=== PATIENT | male | born 1930 | race Caucasian/White ===

== ENCOUNTER 2018-01-25 20:23 | Emergency (ER) | payer MEDICARE, OTHER ==
[~2018-01-25] VITALS: Ht 180.3 cm; Wt 88.5 kg
[~2018-01-25 20:23] MED LIST: ACTIGALL300 MG PO; ADULT LOW DOSE81 MG PO; AMLODIPINE BESY10 MG PO; LEVOTHYROXINE88 MCG PO; METOPROLOL SUC100 MG PO; POTASSIUM CHLO10 ME1 PO; RESTASIS1 DROP OD; TAMSULOSIN HCL0.4 MG PO
[2018-01-25] MEDS ORDERED: MECLIZINE HCL25 MG PO (20:33)
[2018-01-25] MEDS ORDERED: ZOFRAN ODT4 MG PO (21:38)
== END 2018-01-25 22:02 | disposition home or self-care (01) ==
LOC: ED 20:23
DX: R11.2 Nausea with vomiting, unspecified (principal); E87.6 Hypokalemia; I10 Essential (primary) hypertension; E03.9 Hypothyroidism, unspecified; Z79.899 Other long term (current) drug therapy; Z79.82 Long term (current) use of aspirin
CPT/HCPCS: 80053; 81001; 85025; 96361; 96374; 96375; 99283; J2405; J7030

== ENCOUNTER → 2020-06-06 | Emergency (ER) | payer MEDICARE, OTHER ==
[~2020-06-06] VITALS: Ht 180.3 cm; Wt 88.5 kg
[~2020-06-06] MED LIST changes: +MECLIZINE HCL25 MG PO; +ZOFRAN ODT4 MG PO
--- OUTSIDE RECORDS SUMMARY | ~2020-06-06 | XMS | Encounter Summary ---
Demographics + + + | Address | [address] | | | [place] [address] | + + + | Home Phone | | + + + | Preferred Language | Unknown | + + + | Marital Status | Single | + + + | Confucianism Affiliation | Unknown | + + + | Race | Unknown | + + + | Ethnic Group | Other Race | + + + Author + + + | Author | [facility] | + + + | Organization | [facility] | + + + | Address | Unknown | + + + | Phone | Unavailable | + + + Care Team Providers + +------+ + | Care Help Desk Assistant Name | Role | Phone | + +------+ + PCP | Unavailable | + +------+ + Encounter Details +--------+ + + + + | Date | Type | Department | Care Team | Description | +--------+ + + + + | 08/23/ | Hospital | Dermatopathology | | | | 2014 | Encounter | [address] | | | | | | Mailcode: [id number] | | | | | | [facility] | | | | | | and Healing, | | | | | | Building [address] | | | | | | Floor [place], [place] | | | | | | [address] | | | | | | [phone] | | | +--------+ + + + + Social History + +-------+ +--------+------+ | Tobacco Use | Types | Packs/Day | Years | Date | | | | | Used | | + +-------+ +--------+------+ | Never Assessed | | | | | + +-------+ +--------+------+ + + + | Sex Assigned at | Date Recorded | | | | + + + | Not on file | | + + + documented as of this encounter Plan of Treatment Not on filedocumented as of this encounter Procedures + +--------+ + + + | Procedure Name | Priori | Date/Time | Associated Diagnosis | Comments | | | ty | | | | + +--------+ + + + | DERMATOPATHOLOGY(CON | Routin | 08/23/2015 | | Results for this | | SULT) | e | | | procedure are in the | | | | | | results section. | + +--------+ + + + documented in this encounter Results DERMATOPATHOLOGY(CONSULT) (08/23/2015) + + + + + + | Component | Value | Ref Range | Performed | Pathologist | | | | | At | Signature | + + + + + + | DERMATOPATH | THIS IS AN ADDENDUM | | [facility] | | | (CONSULT) | REPORT SOURCE OF | | DERMATOPATH | | | | SPECIMEN:A Right | | OLOGY | | | | anterior lower leg | | | | | | biopsy CLINICAL | | | | | | DESCRIPTION:Hyperkeratot | | | | | | ic papule suspicious for | | | | | | AK, SCC, SK.Materials | | | | | | Received:[id number] | | | | | | [id number] x 1 slide | | | | | | Dear Dr. Gaona: | | | | | | Thank you for asking us | | | | | | to review Marek | | | | | | Painter's right anterior | | | | | | lowerleg biopsy, where | | | | | | there is a shave skin | | | | | | segment with a | | | | | | perivascular | | | | | | andinterstitial | | | | | | lymphohistiocytic | | | | | | infiltrate with | | | | | | occasional | | | | | | eosinophils.Lymphocytes | | | | | | extend into the | | | | | | overlying epidermis | | | | | | where there is | | | | | | fairlyuniform epidermal | | | | | | hyperplasia with | | | | | | spongiosis, foci of | | | | | | spongioticmicrovesiculat | | | | | | ion with Langerhans | | | | | | cells, and parakeratosis | | | | | | with serum. 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 | | | | | | NOTE: Nummular | | | | | | dermatitis is favored, | | | | | | and psoriasis is | | | | | | considered lesslikely. | | | | | | The differential | | | | | | diagnosis includes other | | | | | | eczematous | | | | | | dermatitides,such as | | | | | | allergic contact | | | | | | dermatitis, and possibly | | | | | | inflamed | | | | | | seborrheickeratosis | | | | | | given the clinical | | | | | | impression. Spongiotic | | | | | | drug eruption is | | | | | | notfavored in the | | | | | | clinical context of a | | | | | | solitary lesion. PAS | | | | | | stain has beenrequested | | | | | | in evaluation for fungal | | | | | | hyphae, the results of | | | | | | which will bereported | | | | | | separately as an | | | | | | addendum. | | | | | | Materials | | | | | | Returned:[id number] | | | | | | [id number] x 1 slide | | | | | | ADDENDUM:PAS stain is | | | | | | negative for fungal | | | | | | hyphae, and the | | | | | | diagnosis | | | | | | remainsunchanged. | | | | | | My electronic signature | | | | | | indicates that I have | | | | | | personally reviewed | | | | | | alldiagnostic slides, | | | | | | the gross and/or | | | | | | microscopic portion of | | | | | | thisreport and | | | | | | formulated the final | | | | | | diagnosis. | | | | | | Rendering Diagnostician: | | | | | | Ayaka Zhou | | | | | | Herbie | | | | | | MDPathologistElectronica | | | | | | lly Signed 09/10/2015 | | | | | | 11:23AM | | | | + + + + + + + + | Specimen | + + | | + + + + + | Narrative | Performed At | + + + | | | + + + + + + + + | Performing | Address | City/State/Zipcode | Phone Number | | Organization | | | | + + + + + | [facility] | [id number] | [place] | | | DERMATOPATHOLOGY | [address] | | | + + + + + | [facility] | [address] | [place] [address] | | | DERMATOPATHOLOGY | [address] | | | + + + + + documented in this encounter Visit Diagnoses Not on filedocumented in this encounter"
--- OUTSIDE RECORDS SUMMARY | ~2020-06-06 | XMS | Clinical Summary ---
Demographics + + + | Address | [address] | | | [place] [address] | + + + | Home Phone | | + + + | Preferred Language | Unknown | + + + | Marital Status | Single | + + + | Oriental Orthodox Affiliation | Unknown | + + + | Race | Unknown | + + + | Ethnic Group | Other Race | + + + Author + + + | Author | [facility] | + + + | Organization | [facility] | + + + | Address | Unknown | + + + | Phone | Unavailable | + + + Care Team Providers + +------+ + | Care System Validation Engineer Name | Role | Phone | + +------+ + PCP | Unavailable | + +------+ + Source Comments MALCOM is fully live on both [facility] Ambulatory and [facility] InPatient.[facility] Allergies Not on File Medications Not on file Active Problems Not on file Social History + +-------+ +--------+------+ | Tobacco [...] on file | | + + + Last Filed Vital Signs Not on file Plan of Treatment + + +-------+ + | Health Maintenance | Due Date | Last | Comments | | | | Done | | + + +-------+ + | Pneumococcal | | | | | vaccination (1 of 1 | 7 | | | | - PPSV23) | | | | + + +-------+ + | Influenza (Flu) | | | | | vaccination (#1) | 0 | | | + + +-------+ + Results Not on filefrom Last 3 Months Insurance + +--------+ +--------+ + +--------+ | Payer | Benefi | Subscriber | Effect | Phone | Address | Type | | | t Plan | ID | livia | | | | | | / | | Dates | | | | | | Group | | | | | | + +--------+ +--------+ + +--------+ | MEDICARE | MEDICA | [id number] | 02/01/19 | [phone] | [address] | [address] | | | RE A & | | [address] | [address] | | | B | | sent | | [place] | | | | | | | | [address] | | + +--------+ +--------+ + +--------+ | MODA | MODA | [id number] | 02/01/19 | [phone] | [address] | PPO | | | [place] | | [address] | 4 | [address] | | | | [place] | | sent | | [place], | | | | | | | | [place] [address] | | + +--------+ +--------+ + +--------+ + +--------+ +--------+ + + | Guarantor Name | Accoun | Relation to | Date | Phone | Billing Address | | | t Type | Patient | of | | | | | | | | | | + +--------+ +--------+ + + | Marek Painter | Person | Self | [birth year] | [address] | | | al/Fam | | 1930 | [phone] | [place] [address] | | | kate | | | 8 (Home) | | + +--------+ +--------+ + +"
--- OUTSIDE RECORDS SUMMARY | ~2020-06-06 | XMS | Encounter Summary ---
Demographics + + + | Address | [address] [place] [address] | | | [place] [address] | + + + | Home Phone | | + + + | Preferred Language | Unknown | + + + | Marital Status | | + + + | Buddhist Affiliation | Unknown | + + + | Race | White | + + + | Ethnic Group | Not or | + + + Author + + + | Author | [facility] | | | and [place] | + + + | Organization | [facility] | | | and [place] | + + + | Address | Unknown | + + + | Phone | Unavailable | + + + Support + + +---------+ + | Name | Relationship | Address | Phone | + + +---------+ + | Fabiola Painter | ECON | Unknown | | + + +---------+ + Care Team Providers + +------+ + | Care City Collector Name | Role | Phone | + +------+ + | Sergey Carlton MD | PCP | | + +------+ + Reason for Visit +--------+ + | Reason | Comments | +--------+ + | Other | cirrhosis, biliary | +--------+ + Evaluate & Treat (Routine) +--------+--------+ + + + + | Status | Reason | Specialty | Diagnoses / | Referred By | Referred To | | | | | Procedures | Contact | Contact | +--------+--------+ + + + + | Closed | | Gastroenterol | Diagnoses | Sitz, | [facility] | | | | ogy | Biliary | Sergey | Gastroenterol | | | | | cirrhosis, | MD Louie | ogy [address] | | | | | unspecified | [address] | | | | | (HCC) | [place] | [address] [place] | | | | | | [address] | [place], [place] | | | | | | [place], | [address] | | | | | | [place] | Phone: | | | | | | [address] | [phone] | | | | | | Phone: | Fax: | | | | | | [phone] | [phone] | | | | | | Fax: | | | | | | | [phone] | | +--------+--------+ + + + + Encounter Details +--------+---------+ + + + | Date | Type | Department | Care Team | Description | +--------+---------+ + + + | 12/27/ | Office | [facility] | Augustus Beard MD | Biliary cirrhosis, | | 2016 | Visit | GASTROENTEROLOGY | [address] | unspecified (HCC) | | | | [address] | [address] [place], [place] | (Primary Dx) | | | | [address] [place], [place] | [address] | | | | | [address] | | | | | | [phone] | | | +--------+---------+ + + + Social History + +-------+ +--------+------+ | Tobacco Use | Types | Packs/Day | Years | Date | | | | | Used | | + +-------+ +--------+------+ | Never Smoker | | | | | + +-------+ +--------+------+ + +---+---+---+ | Smokeless Tobacco: | | | | | Never Used | | | | + +---+---+---+ + + + + + | Alcohol Use | Drinks/Week | oz/Week | Comments | + + + + + | Yes | 2-4 Standard | 2.0 - 4.0 | | | | drinks or equivalent | | | + + + + + + + + | Sex Assigned at | Date Recorded | | | | + + + | Not on file | | + + + documented as of this encounter Last Filed Vital Signs + + + + + | Vital Sign | Reading | Time Taken | Comments | + + + + + | Blood Pressure | 138/68 | 12/28/2015 1:32 PM | | | | | PDT | | + + + + + | Pulse | 62 | 12/28/2015 1:32 PM | | | | | PDT | | + + + + + | Temperature | - | - | | + + + + + | Respiratory Rate | 16 | 12/28/2015 1:32 PM | | | | | PDT | | + + + + + | Oxygen Saturation | 96% | 12/28/2015 1:32 PM | | | | | PDT | | + + + + + | Inhaled Oxygen | - | - | | | Concentration | | | | + + + + + | Weight | 89.4 kg (197 lb) | 12/28/2015 1:32 PM | | | | | PDT | | + + + + + | Height | 182.9 cm (6') | 12/28/2015 1:32 PM | | | | | PDT | | + + + + + | Body Mass Index | 26.72 | 12/28/2015 1:32 PM | | | | | PDT | | + + + + + documented in this encounter Progress Notes Augustus Beard MD - 12/28/2015 2:12 PM PDT Subjective: Patient ID: Marek Painter is a 85 y.o. male. HPI Comments: The patient is seen in follow-up with respect to biliary cirrhosis biopsy pro shelly 2005 The patient was evaluated in 2005 with respect to abnormal ever function test of an obstruc tive nature. ERCP showed normal intrahepatic ducts and a dilated common bile duct. Enterot tyrel was done and no stones were delivered into the duodenum. As such liver biopsy was perfo rmed which showed biliary cirrhosis of the small ducts. Patient based on ursodiol at that t karen. Etiology of the biliary cirrhosis is unclear The patient since that time was done extremely well. His noticed no signs of overt hepatic decompensation. He denies arthralgias myalgias pruritus jaundice dry mouth, does have dry eyes and is being evaluated by an die cast supervisor and has no xanthomas. He remains physical ly and mentally alert. The patient is on ursodiol 600 mg a day. Patient denies steatorhea Selected laboratory studies of note include platelet count of 165,000 normal hemoglobin nor mal bilirubin normal AST ALT elevated GGTP 195. Albumin is 3.8 TSH normal at 1.2 the patien t is on thyroid supplement vitamin A and D levels not drawn but not necessarily indicated gi shelly normal bilirubin and absence of steatorrhea. Sed rate normal Patient does complain of some pain in his lower chest. He believes that it might be muscul oskeletal in origin. Appears to be increasing in the morning and is not associated with frankie ls patient denies symptoms of reflux dysphagia or odynophagia. If he ignores the symptoms a re usually go away. He denies shortness of breath denies diaphoresis nausea etc. with exerc ise. Other Associated symptoms include chest pain. Filed Vitals: 12/28/15 1332 BP: 138/68 Pulse: 62 Resp: 16 PainSc: 0 - No pain No Known Allergies Past Medical History Diagnosis Date BPH (benign prostatic hyperplasia) Cirrhosis, biliary (HCC) Dry eye syndrome Esophagitis Benign essential HTN Hay fever Hemorrhoids Osteoarthritis ED (erectile dysfunction) Vertigo Past Surgical History Procedure Laterality Date Cholecystectomy, laparoscopic Egd and colonoscopy 2003 GIO MAYS Liver biopsy [address] DR. BEARD Ercp [address] DR. BEARD Sphincterotomy 2005 KISHA MAYS Nasal septum surgery Cataract removal Left 2013 Family History Problem Relation Age of Onset Coronary artery disease Father 78 DESEASED Hypertension Mother 77 DESEASED Stroke Mother Coronary artery disease Brother PVD Brother Multiple Sclerosis Brother History Social History Marital Status: Spouse Name: N/A Number of Children: N/A Years of Education: N/A Social History Main Topics Smoking status: Never Smoker Smokeless tobacco: Never Used Alcohol Use: 1.2 - 2.4 oz/week 2-4 Standard drinks or equivalent per week Drug Use: No Sexual Activity: Not on file Other Topics Concern None Social History Narrative EXERCISING REGULAR RETIRED Review of Systems Eyes: Positive for visual disturbance. Dry eyes Cardiovascular: Positive for chest pain and leg swelling. No jugular venous distention supine no hepatojugular reflux All other systems reviewed and are negative. Objective: Physical Exam Constitutional: He is oriented to person, place, and time. He appears well-developed and we ll-nourished. No distress. HENT: Head: Normocephalic and atraumatic. Right Ear: External ear normal. Left Ear: External ear normal. Nose: Nose normal. Mouth/Throat: Oropharynx is clear and moist. Moist mucous membranes dentition in good repair Eyes: Conjunctivae and EOM are normal. Pupils are equal, round, and reactive to light. Righ t eye exhibits no discharge. Left eye exhibits no discharge. No scleral icterus. Neck: Normal range of motion. Neck supple. No JVD present. No tracheal deviation present. Cardiovascular: Normal rate, regular rhythm and intact distal pulses. Exam reveals frictio n rub. Exam reveals no gallop. No murmur heard. No jugular venous distention hepatojugular reflux Pulmonary/Chest: Effort normal and breath sounds normal. No stridor. No respiratory distres s. He has no wheezes. He has no rales. He exhibits no tenderness. Abdominal: Soft. Bowel sounds are normal. He exhibits no distension and no mass. There is n o tenderness. There is no rebound and no guarding. Tympany to percussion upper abdomen Musculoskeletal: Normal range of motion. He exhibits edema. He exhibits no tenderness. No lumbosacral edema Lymphadenopathy: He has no cervical adenopathy. Neurological: He is alert and oriented to person, place, and time. No cranial nerve deficit . He exhibits normal muscle tone. Coordination normal. Skin: Skin is warm and dry. No rash noted. He is not diaphoretic. No erythema. No pallor. Psychiatric: He has a normal mood and affect. His behavior is normal. Judgment and thought content normal. Nursing note and vitals reviewed. Assessment: Biliary cirrhosis etiology unclear patient doing remarkably well with respect to the same o n suboptimal dose of ursodiol No signs physically of portal hypertension No signs of secondary involvement of an immune nature involving other organ systems Plan: As the patient is doing well on brief discussion was held whether reimaging of the biliary ducts would be B of any advantage. Given the fact that the patient is doing very well clinically and bioc hemically MRCP would be primarily of academic interesting would not really change the patien t's therapy. As such we'll not pursue the same. Continue to monitor the patient's liver biochemistries platelet count etc. Would only avel ure vitamin A and vitamin D level if stearrhea occurs or if bilirubin begins to rise and be comes elevated. Continue the patient on low-dose ursodiol she has done well over the past 10 years, given a ge of 85 and not feel that screening for portal hypertension and esophageal varices is indic ated at this time although with pedal edema worsens ascites develops then an evaluation at t hat time would be appropriate Portions of this report were transcribed using voice recognition software. Every effort wa s made to ensure accuracy; however, inadvertent computerized stripper and opaquer apprentice errors may be pre sent. documented in this enc ounter Plan of Treatment Not on filedocumented as of this encounter Visit Diagnoses + + | Diagnosis | + + | Biliary cirrhosis, unspecified (HCC) - Primary | + + documented in this encounter"
--- OUTSIDE RECORDS SUMMARY | ~2020-06-06 | XMS | Encounter Summary ---
Demographics + + + | Address | [address] | | | [place] [address] | + + + | Home Phone | | + + + | Preferred Language | Unknown | + + + | Marital Status | Single | + + + | Restoration Affiliation | Unknown | + + + | Race | Unknown | + + + | Ethnic Group | Other Race | + + + Author + + + | Author | [facility] | + + + | Organization | [facility] | + + + | Address | Unknown | + + + | Phone | Unavailable | + + + Care Team Providers + +------+ + | Care Clinical Nurse Occupational Medicine Name | Role | Phone | + +------+ + PCP | Unavailable | + +------+ + Encounter Details +--------+ + + + + | Date | Type | Department | Care Team | Description | +--------+ + + + + | 10/12/ | Results | Registration [id number] | | | 2008 | Only | [address] | [phone] | | | | | [address] Mailcode: [id number] | | | | | | [place], [place] | | | | | | [address] | | | | | | [phone] | | | +--------+ + + + [...] | + +--------+ + + + | DERMATOPATHOLOGY(WET Routin | 10/12/2008 | | Results for this | | [facility]) | e | | | procedure are in the | | | | | | results section. | + +--------+ + + + documented in this encounter Results DERMATOPATHOLOGY(WET [facility]) (10/12/2008) + + + + + + | Component | Value | Ref Range | Performed | Pathologist | | | | | At | Signature | + + + + + + | DERMATOPATH | SOURCE OF SPECIMEN:A | | | | | OLOGY(WET | FIRST TISSUE LEVEL IV | | | | | MNT) | [id number] | | | | | | DESCRIPTION:Shave, lt. | | | | | | chest; irreg. shaped and | | | | | | pigmented plaques for | | | | | | unknown time;melanocytic | | | | | | nevus; SK; R/O | | | | | | melanoma.GROSS | | | | | | DESCRIPTION:Lt. chest, | | | | | | shave 1.4x 1.1 cm, five | | | | | | segments.MICROSCOPIC | | | | | | DESCRIPTION:There is a | | | | | | small to moderately | | | | | | broad, symmetrical and | | | | | | well | | | | | | circumscribedmelanocytic | | | | | | neoplasm characterized | | | | | | by small nests and | | | | | | single melanocytesalong | | | | | | the basal layer of | | | | | | hyperplastic and | | | | | | hyperpigmented rete | | | | | | ridges. Themelanin | | | | | | pigment extends | | | | | | throughout the | | | | | | epidermis, including the | | | | | | stratumcorneum. 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 / | | | | | | DermatopathologistRender | | | | | | ing Diagnostician: | | | | | | Candido Gomes | | | | | | M.OsmaniPathologistElectroni | | | | | | hannah Signed 10/18/2008 | | | | + + + + + + + + | Specimen | + + | Other | + + + + + | Narrative | Performed At | + + + | Ordered by José Luis Kelsey MD | | + + + + + + + + | Performing | Address | City/State/Zipcode | Phone Number | | Organization | | | | + + + + + | [facility] | [address] | [place] [address] | | | DERMATOPATHOLOGY | [address] | | | + + + + + documented in this encounter Visit Diagnoses Not on filedocumented in this encounter"
--- OUTSIDE RECORDS SUMMARY | ~2020-06-06 | XMS | Encounter Summary ---
Demographics + + + | Address | [address] | | | [place] [address] | + + + | Home Phone | | + + + | Preferred Language | Unknown | + + + | Marital Status | Single | + + + | Gnosticist Affiliation | Unknown | + + + | Race | Unknown | + + + | Ethnic Group | Other Race | + + + Author + + + | Author | [facility] | + + + | Organization | [facility] | + + + | Address | Unknown | + + + | Phone | Unavailable | + + + Care Team Providers + +------+ + | Care Stereotype Molder Name | Role | Phone | + +------+ + PCP | Unavailable | + +------+ + Encounter Details +--------+ + + + + | Date | Type | Department | Care Team | Description | +--------+ + + + + | 09/29/ | Hospital | Dermatopathology | | | | 2013 | Encounter | [address] | | | | | | Mailcode: [id number] | | | | | | [facility] | | | | | | and Healing, | | | | | | Building [address], | | | | | | Floor [place], [place] | | | | | | [address] | | | | | | [phone] | | | +--------+ + + + [...] + + documented as of this encounter Miscellaneous Notes Scan - Other, Faculty - 10/09/2013 2:06 PM PSTElectronically signed by Faculty Other at 2:06 PM PSTScan - Other, Faculty - 10/09/2013 2:06 PM PST documented in this encounter Plan of Treatment Not on filedocumented as of this encounter Procedures + +--------+ + + + | Procedure Name | Priori | Date/Time | Associated Diagnosis | Comments | | | ty | | | | + +--------+ + + + | DERMATOPATHOLOGY(WET | Routin | 09/29/2013 | | Results for this | | [facility]OUNT) | e | | | procedure are in the | | | | | | results section. | + +--------+ + + + documented in this encounter Results DERMATOPATHOLOGY(WET [facility]) (09/29/2013) + + + + + + | Component | Value | Ref Range | Performed | Pathologist | | | | | At | Signature | + + + + + + | DERMATOPATH | SOURCE OF SPECIMEN:A Lt. | | [facility] | | | OLOGY(WET | thigh, shave biopsy | | DERMATOPATH | | | MNT) | CLINICAL | | OLOGY | | | | DESCRIPTION:New reddish | | | | | | brown plaque; irritated | | | | | | SK, SCC-in-situ; r/o | | | | | | melanoma. GROSS | | | | | | DESCRIPTION:Received in | | | | | | formalin is a specimen | | | | | | labeled Painter, | | | | | | Marek:A: Specimen is | | | | | | labeled "Lt thigh" and | | | | | | consists of an irregular | | | | | | shave ofmacular | | | | | | brown-white skin, | | | | | | [id number]. The surgical | | | | | | margin is inked | | | | | | black;the tissue is | | | | | | serially sectioned, and | | | | | | entirely submitted in | | | | | | cassette A1. | | | | | | MICROSCOPIC | | | | | | DESCRIPTION:There are | | | | | | aggregates of cells with | | | | | | hyperchromatic nuclei, | | | | | | scant cytoplasmand | | | | | | palisading of the | | | | | | peripheral nuclei, | | | | | | emanating from the | | | | | | undersurface ofthe | | | | | | epidermis. 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 | | | | | | NOTE: The basal | | | | | | cell carcinoma extends | | | | | | to the peripheral | | | | | | margins. | | | | | | KPW:mm10/03/13 My | | | | | | electronic signature | | | | | [...] Gomes | | | | | | MSantosPathologistElectroni | | | | | | hannah Signed 10/03/2013 | | | | | | 6:55PM | | | | + + + + + + + + | Specimen | + + | | + + + + + + + | Performing | Address | City/State/Zipcode | Phone Number | | Organization | | | | + + + + + | [facility] | Mailcode [id number] [address] | [facility] [place] [address] | | | DERMATOPATHOLOGY | [address] | | | + + + + + | [facility] | Mailcode CH5D [address] | [place] [address] | | | DERMATOPATHOLOGY | [address] | | | + + + + + documented in this encounter Visit Diagnoses Not on filedocumented in this encounter
--- OUTSIDE RECORDS SUMMARY | ~2020-06-06 | XMS | Clinical Summary ---
Demographics + + + | Address | [address] [place] [address] | | | [place] [address] | + + + | Home Phone | | + + + | Preferred Language | Unknown | + + + | Marital Status | | + + + | Gnosticism Affiliation | Unknown | + + + | Race | White | + + + | Ethnic Group | Not or | + + + Author + + + | Author | [facility] | | | and [place] | + + + | Organization | [facility] | | | and [...] Team Providers + +------+ + | Care Splitter Hand Name | Role | Phone | + +------+ + | Sergey Carlton MD | PCP | | + +------+ + Allergies No Known Allergies Medications + + + +---------+------+------+-------+ | Medication | Sig | Dispensed | Refills | Star | End | Statu | | | | | | t | Date | s | | | | | | Date | | | + + + +---------+------+------+-------+ | amLODIPine | Take 10 mg by mouth | | 3 | 02/0 | | Activ | | (NORVASC) 10 MG | Daily. | | | 03/22 | | e | | tablet | | | | 16 | | | + + + +---------+------+------+-------+ | RESTASIS 0.05 % | Place 1 drop into | | 0 | 04/0 | | Activ | | ophthalmic emulsion | both eyes Daily. | | | 04/22 | | e | | | | | | 16 | | | + + + +---------+------+------+-------+ | levothyroxine | Take 88 mcg by mouth | | 3 | 04/2 | | Activ | | (SYNTHROID, | Daily. | | | 0/20 | | e | | LEVOTHROID) 88 mcg | | | | 16 | | | | tablet | | | | | | | + + + +---------+------+------+-------+ | metoprolol | Take 100 mg by mouth | | 3 | 02/1 | | Activ | | succinate | Daily. | | | 03/22 | | e | | (TOPROL-XL) 100 mg | | | | 16 | | | | ER tablet | | | | | | | + + + +---------+------+------+-------+ | potassium chloride | Take 10 mEq by | | 3 | 03/1 | | Activ | | (KLOR-CON) 10 mEq | mouth. 2 tabs BID | | | 4/20 | | e | | CR tablet | | | | 16 | | | + + + +---------+------+------+-------+ | tamsulosin | Take 0.4 mg by mouth | | 2 | 03/2 | | Activ | | (FLOMAX) 0.4 mg CAPS | Daily. | | | 9/20 | | e | | | | | | 16 | | | + + + +---------+------+------+-------+ | aspirin 81 mg EC | Take 81 mg by mouth | | 0 | | | Activ | | tablet | Daily. | | | | | e | + + + +---------+------+------+-------+ | magnesium, as | Take 250 mg by mouth | | 0 | | | Activ | | oxide, 250 MG tablet | Daily. | | | | | e | + + + +---------+------+------+-------+ | Multiple | Take 1 tablet by | | 0 | | | Activ | | Vitamins-Minerals | mouth Daily. | | | | | e | | (CENTRUM SILVER) | | | | | | | | TABS | | | | | | | + + + +---------+------+------+-------+ | ursodiol | Take 300 mg by mouth | | 0 | | | Activ | | (ACTIGALL) 300 mg | 2 times daily. | | | | | e | | capsule | | | | | | | + + + +---------+------+------+-------+ Active Problems Not on file Family History + + +------+ + | Medical History | Relation | Name | Comments | + + +------+ + | Coronary artery | Brother | | | | disease | | | | + + +------+ + | Multiple sclerosis | Brother | | | + + +------+ + | PVD | Brother | | | + + +------+ + | Coronary artery | Father | | DESEASED | | disease | | | | + + +------+ + | Hypertension | Mother | | DESEASED | + + +------+ + | Stroke | Mother | | | + + +------+ + + +------+--------+ + | Relation | Name | Status | Comments | + +------+--------+ + | Brother | | | | + +------+--------+ + | Father | | | | + +------+--------+ + | Mother | | | | + +------+--------+ + Social History + +-------+ +--------+------+ | [...] + + + Last Filed Vital Signs + + + [...] | | + + + + + Plan of Treatment + + +-------+ + | Health Maintenance | Due Date | Last | Comments | | | | Done | | + + +-------+ + | Vaccine: | | | | | Dtap/Tdap/Td (1 - | 1 | | | | Tdap) | | | | + + +-------+ + | Vaccine: Zoster (1 | | | | | of 2) | 2 | | | + + +-------+ + | Vaccine: | | | | | Pneumococcal 65+ (1 | 7 | | | | of 1 - PPSV23) | | | | + + +-------+ + | Vaccine: Influenza | | | | | (#1) | 0 | | | + [...] + +--------+ | MEDICARE | MEDICA | [id number] | 02/01/19 | [phone] | | Medica | | | RE | | 97-Pre | 5 | | re | | | PART A | | sent | | | | | | AND B | | | | | | + +--------+ +--------+ + +--------+ | MODA | MODA | [id number] | 09/03/19 | [phone] | [address] | Indemn | | | HEALTH | | 14-Pre | 9 | [id number] | ity | | | MDCR | | sent | | [place], | | | | [place] | | | | [place] [address] | | + +--------+ +--------+ + +--------+ + +--------+ +--------+ + + | Guarantor Name | Accoun | Relation to | Date | Phone | Billing Address | | | t Type | Patient | of | | | | | | | | | | + +--------+ +--------+ + + | Marek Painter | Person | Self | [birth year] | [address] | | [place] | jesse/Devyn | | 1930 | [phone] | [place], [place] | | | kate | | | [address] (Home) | [phone] | + +--------+ +--------+ + + Advance Directives + + + + + | Type | Date Recorded | Patient | Explanation | | | | Brand Strategist | | + + + + + | Power of | | | | | Temple Marker | | | | + + + + + | Advance | | | | | Directive | | | | + + + + +"
--- OUTSIDE RECORDS SUMMARY | ~2020-06-06 | XMS | Encounter Summary ---
Demographics + + + | Address | [address] [place] [address] | | | [place] [address] | + + + | Home Phone | | + + + | Preferred Language | Unknown | + + + | Marital Status | | + + + | Jew Affiliation | Unknown | + + + | Race | White | + + + | Ethnic Group | Not or | + + + Author + + + | Author | [facility] | | | and [place] | + + + | Organization | [facility] | | | [...] Team Providers + +------+ + | Care Drafter Geophysical Name | Role | Phone | + +------+ + PCP | Unavailable | + +------+ + Encounter Details +--------+ + + + + | Date | Type | Department | Care Team | Description | +--------+ + + + + | 09/29/ | [facility] | [facility] | Augustus Wyatt MD | | | 2005 | Encounter | MED CTR MP INTRA OP | [address], [place] | | | | | [address] | [address] | | | | | [place] | [address] | | | | | [address] | | | | | | [phone] | | | +--------+ + + + [...] filedocumented as of this encounter Visit Diagnoses Not on filedocumented in this encounter"
--- OUTSIDE RECORDS SUMMARY | ~2020-06-06 | XMS | Encounter Summary ---
Demographics + + + | Address | [address] [place] [address] | | | [place] [address] | + + + | Home Phone | | + + + | Preferred Language | Unknown | + + + | Marital Status | | + + + | Religion Affiliation | Unknown | + + + | Race | White | + + + | Ethnic Group | Not or | + + + Author + + + | Author | [facility] | | | and [place] | + + + | Organization | [facility] | | | [...] Team Providers + +------+ + | Care Breeding Manager Name | Role | Phone | + +------+ + PCP | Unavailable | + +------+ + Encounter Details +--------+ + + + + | Date | Type | Department | Care Team | Description | +--------+ + + + + | 12/28/ | [facility] | [facility] | Augustus Wyatt MD | | | 2004 | Encounter | MED CTR XRAY [address] | [address] | | | | | [place] | [address] | | | | | [place] [address] | [id number] | | | | | [phone] | | | +--------+ + + + [...]
--- OUTSIDE RECORDS SUMMARY | ~2020-06-06 | XMS | Encounter Summary ---
Demographics + + + | Address | [address] [place] [address] | | | [place] [address] | + + + | Home Phone | | + + + | Preferred Language | Unknown | + + + | Marital Status | | + + + | Taoist Affiliation | Unknown | + + + | Race | White | + + + | Ethnic Group | Not or | + + + Author + + + | Author | [facility] | | | and [place] | + + + | Organization | [facility] | | | and [...] Team Providers + +------+ + | Care Chocolate Finisher Operator Name | Role | Phone | + +------+ + | Sergey Carlton MD | PCP | | + +------+ + Encounter Details +--------+ + + + + | Date | Type | Department | Care Team | Description | +--------+ + + + + | 12/27/ | Abstract | [facility] | Jose F Boswell MD | | | 2016 | | GASTROENTEROLOGY | [address] | | | | | [address] [facility] [facility] | [place] | | | | | [address] | [address] | | | | | [address] | [phone] | | | | | [phone] | | | +--------+ + + + [...] + + + | Blood Pressure | 122/62 | 12/07/2015 10:43 AM | LEFT ARM | | | | PDT | | + + + + + | Pulse | 68 | 12/07/2015 10:43 AM | | | | | PDT | | + + + + + | Temperature | - | - | | + + + + + | Respiratory Rate | - | - | | + + + + + | Oxygen Saturation | - | - | | + + + + + | Inhaled Oxygen | - | - | | | Concentration | | | | + + + + + | Weight | 88.9 kg (196 lb) | 12/07/2015 10:43 AM | | | | | PDT | | + + + + + | Height | 182.9 cm (6') | 12/07/2015 10:43 AM | | | | | PDT | | + + + + + | Body Mass Index | 26.58 | 12/07/2015 10:43 AM | | | | | PDT | | + + + + + documented in this encounter Plan of Treatment Not on filedocumented as of this encounter Visit Diagnoses Not on filedocumented in this encounter"
== END ==
LOC: ED 13:42
DX: R04.0 Epistaxis (principal); I10 Essential (primary) hypertension; E03.9 Hypothyroidism, unspecified; Z87.891 Personal history of nicotine dependence; Z79.899 Other long term (current) drug therapy
CPT/HCPCS: 30901; 99283-25

== ENCOUNTER 2021-03-20 10:23 | Observation (INO) | payer MEDICARE, OTHER ==
[~2021-03-20] VITALS: Ht 180.3 cm; Wt 84.8 kg
[~2021-03-20 10:23] MED LIST changes: -ACTIGALL300 MG PO; +URSODIOL300 MG PO
--- NOTE | 2021-03-20 13:51 | NUR ---
Patient to medical floor. Patient alert and oriented x4. Patient's speech is clear and appropriate at this time. Strenghth is equal in upper and lower ext's. Patient denies visual deficits. Patient ambulated to restroom independently; tolerated well. Oriented patient to room and call light. Patient provided with warm blanket. No needs at this time. Close to RN station.
[2021-03-20] MEDS ORDERED: DUTASTERIDE0.5 MG PO (13:55)
[2021-03-20] MEDS ORDERED: SPIRONOLACTONE25 MG PO (13:56)
--- NOTE | 2021-03-20 17:23 | NUR ---
Patient reports he is doing well, denies pain. Patient tolerated dinner well. Patient has no notable distress. No needs. Personal supplies and call light within reach.
--- NOTE | 2021-03-20 19:31 | NUR ---
REPORT RECEIVED FROM DAY SHIFT RN. PT SITTING IN RECLINER. ALERT AND ORIENTED READING A BOOK. DENIES NEEDS. WHITE BOARD UPDATED. CALL LIGHT IN REACH.
--- NOTE | 2021-03-20 20:50 | NUR ---
LOCOMOTIVE ELECTRICIAN ROUNDING NOTE. PT SITTING UP IN CHAIR. SCHEDULED MEDICATIONS ADMINISTERED, PT STATES THAT HE IS READY FOR BED. WARM BLANKET PROVIDED. PT TRANSFERS FROM CHAIR TO BED INDEPENDENTLY. EDUCATION PROVIDED REGARDING POC FOR THIS SHIFT, MRI PROCEDURE TOMORROW. PT ASKS APPROPRIATE QUESTIONS, DENIES FURHTER NEEDS. CALL LIGHT IN REACH. WHITE BOARD UPDATED.
--- NOTE | 2021-03-20 21:30 | NUR ---
EVENING ASSESSMENT COMPLETE. NEURO CHECK WNL. NO DEFECITS NOTED. PT DENIES PAIN OR NAUSEA. TELE # 7 SINUS NADIRA. HR 50'S. PT DENIES QUESTIONS OR CONCERNS. CALL LIGHT IN REACH.
--- NOTE | 2021-03-20 23:24 | NUR ---
PT RESTING IN BED WITH EYES CLOSED. RESPIRATIONS EVEN. CALL LIGHT IN REACH.
--- NOTE | 2021-03-21 01:43 | NUR ---
VS AND I&O COMPLETE. ASSESSMENT COMPLETE. NEURO CHECK WNL. NO DEFECITS NOTED. PT DENIES PAIN OR SOB. TELE #7. HR 50'S. NO FURTHER NEEDS. CALL LIGHT IN REACH.
--- NOTE | 2021-03-21 06:20 | NUR ---
SCHEDULED MEDS ADMINISTERED PER EMAR. NO SWALLOWING ISSUES NOTED. NEURO ASSESSMENT WNL. NO DEFECITS NOTED. PT DENIES PAIN OR SOB. TELE #7. HR 60'S. BREAKFAST ORDERED. PT DENIES NEEDS. CALL LIGHT IN REACH.
--- NOTE | 2021-03-21 07:30 | EKG ---
[facility] [address] [facility] [place] [address] Signed Normal sinus rhythm with sinus arrhythmia Left anterior fascicular block Abnormal ECG No previous ECGs available Confirmed by JUS CARIG MD ([id number]) on 03/21/2021 7:29:54 AM Electronically Signed By: JUS CRAIG MD 03/21/21 0730 PATIENT NAME: ROSSLELE Electrocardiogram DATE OF : 34 PHYSICIAN: JUS CRAIG MD REPORT #: [id number] REPORT IS CONFIDENTIAL AND NOT TO BE RELEASED WITHOUT AUTHORIZATION
--- NOTE | 2021-03-21 07:32 | NUR ---
Patient awake resting in bed, alert and oriented x4. Neuro assessment completed; pt has no notable neuro deficits. Breakfast ordered. Patient is requesting to discharge home after his MRI today. No needs at this time. Personal supplies and call light within reach.
--- NOTE | 2021-03-21 09:11 | NUR ---
PATIENT SITTING IN CHAIR. VITALS AND I&O'S CHARTED. LINENS CHANGED. ST IN ROOM. CALL LIGHT IN REACH. NO FURTHER NEEDS AT THIS TIME.
--- NOTE | 2021-03-21 09:40 | NUR ---
RECVD PATIENT UPDATE VIA AM MEETING AND PRIMARY RN MARI. ATTEMPTED TO SEE PATIENT TO ASSESS, OT IN ROOM WORKING WITH BEREKET. PER MARI ZHENG PATIENT LIVES AT HOME WITH HIS WHERE HE CARES FOR HIS [place]ARD[place]. MARI RN STATES PATIENT IS DOING WELL AND IS EAGER TO GO HOME. PATIENT AWAITING MRI AT 1300. WILL RETURN TO ASSESS PATIENT AT A LATER TIME.
--- NOTE | 2021-03-21 11:25 | NUR ---
It was my pleasure to meet with Mr. Painter today and ask about his care while here in the hospital. Mr. Painter states: "My care has been excellent." Mr. Painter is oriented to person place and time, and he answers questions appropriately. He confirms that the staff members ahve been answering his call light in a timely manner, and he verbalizes that the nurses are explaining his medictions, and the reason for the medications to him. He agrees that the noise level is quiet enough that he can sleep at night, and he has not concerns with the cleanliness of room. Mr. Painter has no questions or concerns for me at this time. He does have my business card should he have any questions or concerns in the future.
--- NOTE | 2021-03-21 14:14 | NUR ---
PATIENT IN CHAIR RESTING. VITALS AND I&O'S CHARTED. FRESH WATER GIVEN. CALL LIGHT IN REACH. NO FURTHER NEEDS AT THIS TIME.
--- NOTE | 2021-03-21 14:17 | NUR ---
PT TAKEN TO IMAGING, WILL CHECK BACK.
[2021-03-21] MEDS ORDERED: LO-DOSE ASPIRIN81 MG PO (15:11)
[2021-03-22] MEDS ORDERED: CLOPIDOGREL75 MG PO (11:59)
== END 2021-03-21 15:40 | disposition home or self-care (01) ==
LOC: ED 10:23 → MS 10:25
PROVIDERS: ADMIT Internal Medicine; ATTEND Internal Medicine
DX: G45.9 Transient cerebral ischemic attack, unspecified (principal); I10 Essential (primary) hypertension; E03.9 Hypothyroidism, unspecified; N40.0 Benign prostatic hyperplasia without lower urinary tract symptoms; E87.6 Hypokalemia; Z87.891 Personal history of nicotine dependence; Z79.890 Hormone replacement therapy; Z79.899 Other long term (current) drug therapy; Z20.822 Contact with and (suspected) exposure to COVID-19
CPT/HCPCS: 70450; 70496; 70498; 70551; 71045; 80048; 80053; 85025; 85610; 85730; 92523; 93005; 93010; 96372; 99285-25; C9803; G0378; J1650; U0003

== ENCOUNTER 2021-03-21 19:38 | Observation (INO) | payer MEDICARE, OTHER ==
[~2021-03-21] VITALS: Ht 180.3 cm; Wt 84.4 kg
[~2021-03-21 19:38] MED LIST changes: +DUTASTERIDE0.5 MG PO; +LO-DOSE ASPIRIN81 MG PO; +SPIRONOLACTONE25 MG PO
--- OUTSIDE RECORDS SUMMARY | 2021-03-21 19:42 | XMS ---
PreManage Notification: LELE ROSS Security Complaint Analyst Events No recent Security Events currently on file CRITERIA MET - [facility] - 2 Visits in 30 Days CARE PROVIDERS There are no care providers on record at this time. Lori has no Care Guidelines for this patient. Maryann VISIT COUNT (12 MO.) [address] [facility] TOTAL 3 NOTE: Visits indicate total known visits. [place] [place]12 [place] 03/21/2021 19:[address] [facility] [place] TYPE: Emergency COMPLAINT: - SLURRED SPEECH 03/20/2021 10:24 [facility] [place] TYPE: Emergency COMPLAINT: - POSSIBLE STROKE 06/06/2020 13:42 [facility] [place] TYPE: Emergency COMPLAINT: - NOSE BLEED DIAGNOSES: - Essential (primary) hypertension - Other intermediate project manager (current) drug therapy - Personal history of nicotine dependence - Epistaxis - Hypothyroidism, unspecified INPATIENT VISIT TRACKING (12 MO.) 03/20/2021 10:25 [facility] [place] TYPE: Observation COMPLAINT: - CVA V TIA DIAGNOSES: - Benign prostatic hyperplasia without lower urinary tract symptoms - Hypokalemia - Personal history of nicotine dependence - Hypothyroidism, unspecified - Essential (primary) hypertension - Other intermediate project manager (current) drug therapy - Dysphagia, unspecified - Transient cerebral ischemic attack, unspecified - Hormone replacement therapy [email or web address]
--- NOTE | 2021-03-21 20:46 | EKG ---
[facility] [address] [facility] [place] [address] Signed Normal sinus rhythm Left anterior fascicular block Abnormal ECG When compared with ECG of 20-MAR-2021 10:59, No significant change was found Confirmed by JUS CRAIG MD ([id number]) on 03/21/2021 8:45:56 PM Electronically Signed By: JUS CRAIG MD 03/21/212045 PATIENT NAME: LELE ROSS Electrocardiogram DATE OF : 34 PHYSICIAN: JUS CRAIG MD REPORT #: [id number] REPORT IS CONFIDENTIAL AND NOT TO BE RELEASED WITHOUT AUTHORIZATION
--- NOTE | 2021-03-21 21:55 | NUR ---
THIS RN TRANSPORTED pt FROM ED TO MED/SURG. pt ALERT AND ORIENTED. ABLE TO MOVE SELF FROM STRETCHER TO BED. NORM REDDING IN ROOM TO DO ADMISSION.
--- NOTE | 2021-03-21 22:30 | NUR ---
PT TO ROOM 111 FROM ED VIA STRETCHER. ORDERS RECEIVED. PT ALERT AND ORIENTED X 4. ORDERS RECEIVED. PT ABLE TO TRANSFER SELF FROM STRETCHER TO BED. GAIT STEADY. NO APHASIA NOTED. NEURO ASSESSMENT WNL. NO DEFECITS NOTED. IVF INFUSING WNL ORDERED. TELE #8. SINUS NADIRA, HR 50'S. PT DENIES PAIN OR SOB. UP TO BR WITH MINIMAL SBA FOR SAFETY. GAIT STEADY. BACK TO BED, GILLIAN WELL. PT ORIENTED TO ROOM AND NURSE CALL LIGHT. PT ENCOURAGED TO CALL FOR ASSISTANCE GETTING OUT OF BED. PT RECEPTIVE AND VERBALIZES UNDERSTANDING. NO FURTHER NEEDS AT THIS TIME. CALL LIGHT IN REACH.
--- NOTE | 2021-03-21 23:54 | NUR ---
CALL LIGHT ANSWERED. SBA TO RESTROOM FOR VOID IN URINAL AND BACK TO BED AFTER WASHING HANDS. CALL LIGHT IN REACH. BED ALARM ON.
--- NOTE | 2021-03-22 02:11 | NUR ---
CALL LIGHT ANSWERED. PT UP TO BATHROOM. VITAL SIGNS DONE. CALL LIGHT WITHIN REACH, NO FURTHER ASSISTNACE NEEDED AT THIS TIME.
--- NOTE | 2021-03-22 02:15 | NUR ---
PT UP TO BR WITH MINIMAL SBA TO VOID. GAIT STEADY. BACK TO BED, GILLIAN WELL. VS AND I&O COMPLETE. NEURO ASSESSMENT WNL. REGIONAL SALES MANAGER STRENGTH EQUAL BUE AND BLE. NO DEFECITS NOTED. PT REPORTS HE HAS HAD NO "EPISODES" SINCE ADMISSION. DENIES PAIN. NO FURTHER NEEDS AT THIS TIME. CALL LIGHT IN REACH. BED ALARM FOR SAFETY.
--- NOTE | 2021-03-22 04:21 | NUR ---
PT RESTING IN BED WITH EYES CLOSED. RESPIRATIONS EVEN. TELE #8. SINUS RHYTHM. HR 50'S.
--- NOTE | 2021-03-22 06:10 | NUR ---
CALL LIGHT ANSWERED. PT UP TO BR WITH MINIMAL SBA TO VOID 300 ML CLEAR YELLOW URINE. GAIT STEADY. BACK TO BED, GILLIAN WELL. VS AND I&O COMPLETE. PT DENIES PAIN OR SOB. NEURO CHECK WNL. NO DEFECITS NOTED. PT REPORTS HE HAS RESTED WELL. TELE #8 HR 50'S. BREAKFAST ORDERED. NO FURTHER NEEDS. CALL LIGHT IN REACH.
--- NOTE | 2021-03-22 07:10 | NUR ---
Report received from Ailyn ZHENG. Pt resting in bed with eyes closed, even and unlabored respirations. No needs identified at this time, will continue plan of care.
--- NOTE | 2021-03-22 07:40 | NUR ---
Call light answered, pt ambulates SBA to BR only needing assistance with IV pump. Back to bed with no needs at this time, call light in reach
--- NOTE | 2021-03-22 08:02 | NUR ---
PT AWAKE IN BED, PLAN TO MOVE TO CHAIR AFTER BREAKFAST. SHADES OPENED WHITE BOARD UPDATED. CALL LIGHT WITHIN REACH. FRESH ICE WATER GIVEN. NO FURTHER NEEDS AT THIS TIME.
--- NOTE | 2021-03-22 08:15 | NUR ---
Scheduled medications administered, assessment completed. VSS, pt A+O, mentally sharp and informed regarding his plan of care. Breakfast tray cleared, pt has no needs at this time. Call light in reach.
--- NOTE | 2021-03-22 09:15 | NUR ---
PT RESTING IN BED. PT PLANS TO NAP THEN USE RESTROOM AND BE UP IN THE CHAIR BEFORE LUNCH. CALL LIGHT WITHIN REACH. NO FURTHER NEEDS AT THIS TIME.
--- NOTE | 2021-03-22 10:00 | NUR ---
Rounded on patient who is resting in bed, states no needs at this time. IVF infusing WNL. Pt A+O, call light in reach.
--- NOTE | 2021-03-22 11:30 | NUR ---
Spoke with pt and he states he lives in a 3 story home in [place] with his . The both drive. He is retired from [employer] as a [employer] and also worked as a mathmatics teacher. He states he is active working in his yard and garden. He was discharged yesterday and returned for the same symptoms. States plan is to start on Plavix then attempt dc home. He states he had an echo this am. Denies needs for dc and plan is to dc to home when cleared by . Pt is financial sound. is [place] [phone].
[2021-03-22] MEDS ORDERED: CLOPIDOGREL75 MG PO (11:59)
--- NOTE | 2021-03-22 14:06 | NUR ---
IVF infusing WNL. New bag of fluid hung. Pt sitting up in chair, updated on plan of care. Assessment complete, pt is alert and oriented and has no needs. Call light within reach.
--- NOTE | 2021-03-22 14:14 | NUR ---
PT AWAKE IN CHAIR. WARM BLANKETS GIVEN. CALL LIGHT WITHIN REACH. NO FURTHER NEEDS AT THIS TIME.
--- NOTE | 2021-03-22 17:02 | NUR ---
PT HAS LAST SET OF VITALS. DAUGHTER HERE TO TAKE PT HOME.
== END 2021-03-22 17:00 | disposition home or self-care (01) ==
LOC: ED 19:38 → MS 19:40
PROVIDERS: ADMIT Internal Medicine; ATTEND Internal Medicine
DX: G45.9 Transient cerebral ischemic attack, unspecified (principal); I10 Essential (primary) hypertension; E03.9 Hypothyroidism, unspecified; E87.6 Hypokalemia; N40.0 Benign prostatic hyperplasia without lower urinary tract symptoms; Z79.82 Long term (current) use of aspirin
CPT/HCPCS: 71045; 80048; 80053; 84484; 85025; 85610; 85730; 92523; 93005; 93010; 93306; 99285-25; G0378; J7030